=== PATIENT | male | born 1965 | race Caucasian/White ===

== ENCOUNTER 2020-07-17 12:34 | Inpatient (IN) | payer OTHER ==
[2020-07-17 13:25] LABS: #Eosinphils 0.1 thou/uL (0.0-0.7); #Lymphocytes 0.9 thou/uL (1.20-3.40); #Monocytes 0.6 thou/uL (0.11-0.59); #Neutrophils 4.1 thou/uL (1.40-6.50); %Basophils 0.2 % (0.0-1.0); %Eosinophils 2.6 % (0.0-10.0); %Lymphocytes 15.6 % (21.0-51.0); %Monocytes 9.9 % (0.0-10.0); %Neutrophils 71.8 % (42.0-75.0); Hemoglobin 14.7 g/dL (14.0-18.0); Mean Corpuscular HGB CONC 35.1 g/dL (32.0-36.0); Mean Corpuscular Hemoglobin 32.1 pg (27.0-31.0); Mean Corpuscular Volume 91.2 fL (78.0-98.0); Mean Platelet Volume 6.9 fL (7.4-10.4); Platelet Count 183 thou/uL (130-400); RBC Distribution Width 17.3 % (11.5-14.5); Red Blood Cell (RBC) Count 4.57 mill/uL (4.70-6.10); White Blood Cell (WBC) Count 5.7 thou/uL (4.8-10.8)
[2020-07-17] MEDS ORDERED: Boostrix 0.5 ML (Tdap) VIAL ONE (13:25)
[2020-07-17 13:47] LABS: ALT (SGPT) 17 U/L (8-55); AST (SGOT) 21 U/L (5-34); Albumin 3.5 g/dL (3.5-5.0); Alkaline Phosphatase 82 U/L (40-110); Anion Gap 12 mmol/L (10-20); BUN (Urea Nitrogen) 9 mg/dL (8.4-25.7); Bilirubin, Total 0.9 mg/dL (0.2-1.2); Calc. Creatinine Clearance 0 mL/min (70-130); Calcium 8.3 mg/dL (7.8-10.44); Carbon Dioxide 23 mmol/L (22-29); Chloride 107 mmol/L (98-107); Globulin 2.4 g/dL (2.4-3.5); Glucose 94 mg/dL (70-105); Magnesium 1.8 mg/dL (1.6-2.6); Protein, Total 5.9 g/dL (6.0-8.3); Sodium 138 mmol/L (136-145)
[2020-07-17 15:09] LABS: Hemoglobin 13.1 g/dL (14.0-18.0)
[2020-07-17] MEDS ORDERED: Heparin 10,000 UNITS/ 10 ML VIAL ONE (15:59)
[2020-07-17] MEDS ORDERED: Fentanyl 100 MCG/2 ML VIAL ONE ×2 (16:02→18:14)
[2020-07-17] MEDS ORDERED: Ketamine 50 MG/ML (10ML VIAL) ONE (16:02)
[2020-07-17] MEDS ORDERED: Albumin 5% 0 ML ONE (16:02)
[2020-07-17] MEDS ORDERED: Midazolam HCl 2 mg/2 ml Vial ONE (16:02)
[2020-07-17 16:03] LABS: SARS-CoV-2 NAA Rapid Test Not Detected (NotDetected)
[2020-07-17] MEDS ORDERED: Sodium Bicarb 50 MEQ/50 ML Abboject 8.4% SYRINGE ONE (16:22)
[2020-07-17] MEDS ORDERED: Phenylephrine 10 MG/ML VIAL ONE (16:22)
[2020-07-17] MEDS ORDERED: Rocuronium Bromide 10 MG/ML (10ML VIAL) ONE (16:42)
[2020-07-17] MEDS ORDERED: Succinylcholine 200 MG/10 ml SYRINGE FS ONE (16:42)
[2020-07-17] MEDS ORDERED: Dexamethasone 20 MG/5 ML VIAL ONE (16:42)
[2020-07-17] MEDS ORDERED: Glycopyrrolate 0.2 MG/ML 5 ML SYRINGE ONE (16:42)
[2020-07-17] MEDS ORDERED: Ondansetron PF 4 MG/2 ML Vial ONE (16:42)
[2020-07-17] MEDS ORDERED: PROPOFOL 200 MG/20 ML VIAL ONE (16:42)
[2020-07-17] MEDS ORDERED: Piperacillin/Tazobactam 3.375 GM VIAL ONE (17:05)
[2020-07-17] MEDS ORDERED: Lorazepam 2 MG/ML VIAL SLOW IVP PRN (18:02)
[2020-07-17] MEDS ORDERED: Ondansetron ODT 4 MG TAB PO PRN (18:02)
[2020-07-17] MEDS ORDERED: Ondansetron PF 4 MG/2 ML Vial IVP PRN ×2 (18:02→18:16)
[2020-07-17] MEDS ORDERED: hydrALAZINE 20 MG/ML VIAL SLOW IVP PRN (18:02)
[2020-07-17] MEDS ORDERED: Ketorolac Tromethamine 30 MG/ML VIAL IVP PRN (18:06)
[2020-07-17] MEDS ORDERED: Promethazine HCl 25 MG/ML VIAL IM PRN ×3 (18:16→18:20)
[2020-07-17] MEDS ORDERED: diphenhydrAMINE 50 MG/ML VIAL IVP PRN (18:16)
[2020-07-17] MEDS ORDERED: Zolpidem Tartrate 5 MG TAB PO PRN (18:16)
[2020-07-17] MEDS ORDERED: diphenhydrAMINE 25 MG CAP PO PRN (18:16)
[2020-07-17] MEDS ORDERED: diphenhydrAMINE 50 MG/ML VIAL IM PRN (18:16)
[2020-07-17] MEDS ORDERED: fentaNYL Citrate/PF 2,000 MCG in Sodium Chloride 0.9% 60 ML IV PRN (18:16)
[2020-07-17] MEDS ORDERED: Naloxone HCl 0.4 mg/ml Vial IV PRN (18:16)
[2020-07-17] MEDS ORDERED: Ondansetron HCl/PF 4 MG/2 ML Vial IVP PRN ×2 (18:19→18:20)
[2020-07-17] MEDS ORDERED: Promethazine HCl 25 MG/ML VIAL SLOW IVP PRN ×2 (18:19→18:20)
[2020-07-17] MEDS ORDERED: Communication Order-Pharmacy FS SCH (18:30)
[2020-07-17] MEDS ORDERED: hydrALAZINE 20 MG/ML VIAL ONE (18:42)
[2020-07-17] MEDS ORDERED: D5 1/2 NS w/20 mEq KCL 1,000 ML ONE (18:58)
[2020-07-17] MEDS: Lactated Ringer's 1,000 ML IV SCH ×3 (21:33→22:33)
[2020-07-17] MEDS: Famotidine/PF 20 mg/2ml Vial SLOW IVP SCH (21:34)
[2020-07-17] MEDS: Enoxaparin Sodium 40 MG/0.4 ML SYRINGE SC SCH (21:35)
[2020-07-17] MEDS: D5 1/2 NS w/20 mEq KCL 1,000 ML IV SCH (21:35)
[2020-07-18 00:28] VITALS: BMI 28.9
[2020-07-18] MEDS: D5 1/2 NS w/20 mEq KCL 1,000 ML IV SCH ×2 (05:27→14:28)
[2020-07-18 07:02] LABS: Anion Gap 13 mmol/L (10-20); BUN (Urea Nitrogen) 8 mg/dL (8.4-25.7); Calc. Creatinine Clearance 102 mL/min (70-130); Calcium 8.4 mg/dL (7.8-10.44); Carbon Dioxide 20 mmol/L (22-29); Chloride 107 mmol/L (98-107); Glucose 135 mg/dL (70-105); Potassium 4.4 mmol/L (3.5-5.1); Sodium 136 mmol/L (136-145)
[2020-07-18 07:09] LABS: Hemoglobin 15.8 g/dL (14.0-18.0); Mean Corpuscular HGB CONC 34.3 g/dL (32.0-36.0); Mean Corpuscular Volume 93.3 fL (78.0-98.0); Mean Platelet Volume 7.4 fL (7.4-10.4); Platelet Count 231 thou/uL (130-400); RBC Distribution Width 16.7 % (11.5-14.5); Red Blood Cell (RBC) Count 4.92 mill/uL (4.70-6.10)
[2020-07-18 07:28] LABS: #Lymphocytes 1.2 thou/uL (1.20-3.40); #Monocytes 1.6 thou/uL (0.11-0.59); #Neutrophils 15.2 thou/uL (1.40-6.50); %Basophils 0.2 % (0.0-1.0); %Eosinophils 0.2 % (0.0-10.0); %Lymphocytes 6.8 % (21.0-51.0); %Monocytes 8.8 % (0.0-10.0); White Blood Cell (WBC) Count 18.1 thou/uL (4.8-10.8)
[2020-07-18] MEDS: Famotidine/PF 20 mg/2ml Vial SLOW IVP SCH ×2 (10:43→21:08)
[2020-07-18] MEDS: Lactated Ringer's 1,000 ML IV SCH (14:28)
[2020-07-18] MEDS ORDERED: Acetaminophen 500 MG TAB PO PRN (14:34)
[2020-07-18] MEDS ORDERED: traMADol HCl 50 MG TAB PO PRN ×2 (14:34→15:13)
[2020-07-18] MEDS ORDERED: Lactated Ringer's 1,000 ML IV SCH (14:35)
[2020-07-18] MEDS: Enoxaparin Sodium 40 MG/0.4 ML SYRINGE SC SCH (21:05)
[2020-07-19] MEDS: Famotidine/PF 20 mg/2ml Vial SLOW IVP SCH ×2 (08:46→21:11)
[2020-07-19] MEDS: Enoxaparin Sodium 40 MG/0.4 ML SYRINGE SC SCH (21:10)
[2020-07-20] MEDS ORDERED: Ibuprofen 600 MG TAB PO PRN (08:28)
[2020-07-20] MEDS ORDERED: traMADol HCl 50 MG TAB PO PRN (08:28)
[2020-07-20] MEDS ORDERED: Polyethylene Glycol 3350 17 GM Packet PO SCH (09:00)
[2020-07-20 11:27] VITALS: BP 102/66; TEMP 98.2
[2020-07-20] MEDS ORDERED: Haemoph B Posysac Conj-Meng 0.5 ML VIAL IM ONE (15:00)
[2020-07-20] MEDS ORDERED: Mening Vac A,C,Y,W-135 Dip/PF 1 EACH KIT IM ONE (16:00)
== END 2020-07-20 18:15 | disposition home or self-care (01) | DRG 799 ==
LOC: ERS 12:34 → SDC/OP 16:44 → SURG B 18:02
PROVIDERS: ADMIT Specialist; ATTEND Specialist
PROC: 07TP0ZZ Resection of Spleen, Open Approach (ICD-10-PCS; principal; 2020-07-17)
PROC: 30233N1 Transfusion of Nonautologous Red Blood Cells into Peripheral Vein, Percutaneous Approach (ICD-10-PCS; 2020-07-17)
DX: D73.5 Infarction of spleen (principal); K66.1 Hemoperitoneum; R57.8 Other shock; S22.42XA Multiple fractures of ribs, left side, initial encounter for closed fracture; S36.09XA Other injury of spleen, initial encounter; W19.XXXA Unspecified fall, initial encounter; Z20.822 Contact with and (suspected) exposure to COVID-19; Z90.49 Acquired absence of other specified parts of digestive tract; Z85.038 Personal history of other malignant neoplasm of large intestine; Z93.2 Ileostomy status; Z92.21 Personal history of antineoplastic chemotherapy; Z87.891 Personal history of nicotine dependence
CPT/HCPCS: 0240U; 36415; 36430; 70450; 71045; 71275; 72125; 74176; 80048; 80053; 82550; 83735; 84146; 84484; 85025; 85379; 86850; 86900; 86901; 88305; 90471; 90647; 90715; 90732; 93005; 94760; G0009; G0390; J0360; J1100; J1644; J1650; J2250; J2370; J2405; J2543; J2704; J3010; J3480; J3490; P9016; P9045; S0028

== ENCOUNTER 2021-01-07 10:06 | Outpatient (CLI) | payer OTHER | END 2021-01-07 10:07 | disposition home or self-care (01) | LOC: RAD 10:06 | PROVIDERS: ATTEND Specialist | DX: Z48.815 Encounter for surgical aftercare following surgery on the digestive system (principal); Z93.2 Ileostomy status | CPT/HCPCS: 74280 ==

== ENCOUNTER 2021-01-19 11:26 | Outpatient (CLI) | payer OTHER ==
[2021-01-19 13:22] LABS: #Basophils 0.2 10x3/uL (0.0-0.2); #Eosinphils 0.3 10x3/uL (0.0-0.5); #Monocytes 1.2 10x3/uL (0.0-1.1); #Neutrophils 5.3 10x3/uL (1.5-8.4); %Basophils 1.4 % (0.0-2.0); %Lymphocytes 32.1 % (18.0-47.0); %Monocytes 11.8 % (0.0-10.0); Hemoglobin 17.9 g/dL (13.5-17.5); Mean Corpuscular HGB CONC 33.4 g/dL (32.0-36.0); Mean Corpuscular Hemoglobin 30.4 pg (27.0-33.0); Mean Corpuscular Volume 91.2 fl (81.2-95.1); Mean Platelet Volume 10.4 fl (7.4-10.4); Platelet Count 446 10x3/uL (150-450); RBC Distribution Width 14.2 % (11.5-14.5); Red Blood Cell (RBC) Count 5.88 10x6/uL (4.32-5.72); White Blood Cell (WBC) Count 10.4 10x3/uL (3.5-10.5)
[2021-01-19 13:36] LABS: ALT (SGPT) 45 U/L (8-55); AST (SGOT) 42 U/L (5-34); Albumin 4.5 g/dL (3.5-5.0); Alkaline Phosphatase 97 U/L (40-110); Anion Gap 16 mmol/L (10-20); BUN (Urea Nitrogen) 12 mg/dL (8.4-25.7); Bilirubin, Total 0.8 mg/dL (0.2-1.2); Calc. Creatinine Clearance 0 mL/min (70-130); Calcium 10.1 mg/dL (7.8-10.44); Carbon Dioxide 22 mmol/L (22-29); Chloride 106 mmol/L (98-107); Glucose 97 mg/dL (70-105); Potassium 4.8 mmol/L (3.5-5.1); Protein, Total 7.5 g/dL (6.0-8.3); Sodium 139 mmol/L (136-145)
[2021-01-19 16:27] LABS: Hemoglobin A1c 5.1 % (4.0-6.0)
[2021-01-19 21:37] LABS: SARS-CoV-2 PCR by NAA Not Detected (NotDetected)
== END 2021-01-19 11:27 | disposition home or self-care (01) ==
LOC: LABBT 11:26
PROVIDERS: ATTEND Specialist
DX: Z01.818 Encounter for other preprocedural examination (principal); Z93.2 Ileostomy status; Z20.822 Contact with and (suspected) exposure to COVID-19
CPT/HCPCS: 80053; 83036; 85025; 93005; 93010; U0003; U0005

== ENCOUNTER 2021-01-19 11:45 | Inpatient (IN) | payer OTHER ==
[2021-01-20 13:45] VITALS: BMI 28.0
[2021-01-31] MEDS ORDERED: Gabapentin 300 MG CAP ONE (08:17)
[2021-01-31] MEDS ORDERED: Acetaminophen 500 MG TAB ONE (08:17)
[2021-01-31] MEDS ORDERED: Ketorolac Tromethamine 30 MG/ML VIAL ONE (08:17)
[2021-01-31] MEDS ORDERED: Meropenem 2 GM in Sodium Chloride 0.9% 100 ML IVPB SCH (08:30)
[2021-01-31] MEDS ORDERED: Meropenem 2 GM in Admixture Fee 1 EACH IVPB SCH (08:30)
[2021-01-31] MEDS ORDERED: Fentanyl 100 MCG/2 ML VIAL ONE ×2 (09:18→09:35)
[2021-01-31] MEDS ORDERED: Bupivacaine PF 0.5% 30 ML VIAL ONE (09:25)
[2021-01-31] MEDS ORDERED: Lidocaine 1% w/Epinephrine 1:100K 20 ML VIAL ONE (09:25)
[2021-01-31] MEDS ORDERED: Midazolam HCl 2 mg/2 ml Vial ONE (09:35)
[2021-01-31] MEDS ORDERED: Rocuronium Bromide 10 MG/ML (10ML VIAL) ONE (10:38)
[2021-01-31] MEDS ORDERED: Lidocaine 1% PF 5 ML VIAL ONE (10:38)
[2021-01-31] MEDS ORDERED: Ondansetron PF 4 MG/2 ML Vial ONE (10:38)
[2021-01-31] MEDS ORDERED: Bupivacaine HCl 0.5%/Epinephrine 1:200,000/PF 30 ml Vial ONE (10:38)
[2021-01-31] MEDS ORDERED: Glycopyrrolate 0.2 MG/ML 5 ML SYRINGE ONE (10:38)
[2021-01-31] MEDS ORDERED: ePHEDrine 50 MG/ML VIAL ONE (10:38)
[2021-01-31] MEDS ORDERED: PROPOFOL 200 MG/20 ML VIAL ONE (10:38)
[2021-01-31] MEDS ORDERED: Dexamethasone 20 MG/5 ML VIAL ONE (10:38)
[2021-01-31] MEDS ORDERED: hydrALAZINE 20 MG/ML VIAL SLOW IVP PRN (12:39)
[2021-01-31] MEDS ORDERED: Morphine 4 MG/ML VIAL SLOW IVP PRN ×2 (12:39→12:55)
[2021-01-31] MEDS ORDERED: Ondansetron PF 4 MG/2 ML Vial IVP PRN (12:39)
[2021-01-31] MEDS ORDERED: Ondansetron ODT 4 MG TAB PO PRN (12:39)
[2021-01-31] MEDS ORDERED: Ketorolac Tromethamine 30 MG/ML VIAL IVP PRN (12:42)
[2021-01-31] MEDS ORDERED: traMADol HCl 50 MG TAB PO PRN (12:42)
[2021-01-31] MEDS: Acetaminophen 500 MG TAB PO SCH ×2 (15:02→20:47)
[2021-01-31] MEDS: D5 1/2 NS w/20 mEq KCL 1,000 ML IV SCH ×2 (15:03→21:39)
[2021-01-31] MEDS ORDERED: FLU VACC QS2021-22(6MOS UP)/PF 60 MCG/0.5 ML SYRINGE IM ONE (16:15)
[2021-01-31] MEDS ORDERED: Prevnar 13-Val Conj/PF 0.5 ML SYRINGE IM ONE (16:15)
[2021-01-31] MEDS: Famotidine 20 MG TAB PO SCH (20:47)
[2021-01-31] MEDS ORDERED: Enoxaparin Sodium 40 MG/0.4 ML SYRINGE SC SCH (21:00)
[2021-02-01] MEDS: Acetaminophen 500 MG TAB PO SCH ×3 (02:38→15:44)
[2021-02-01] MEDS: D5 1/2 NS w/20 mEq KCL 1,000 ML IV SCH (04:27)
[2021-02-01 06:10] LABS: #Basophils 0.1 thou/uL (0.0-0.2); #Eosinphils 0.1 thou/uL (0.0-0.7); #Lymphocytes 3.2 thou/uL (1.20-3.40); #Neutrophils 10.6 thou/uL (1.40-6.50); %Basophils 0.4 % (0.0-1.0); %Eosinophils 0.6 % (0.0-10.0); %Monocytes 12.6 % (0.0-10.0); %Neutrophils 66.4 % (42.0-75.0); Hemoglobin 14.1 g/dL (14.0-18.0); Mean Corpuscular HGB CONC 33.4 g/dL (32.0-36.0); Mean Corpuscular Hemoglobin 32.3 pg (27.0-31.0); Mean Corpuscular Volume 96.7 fL (78.0-98.0); Mean Platelet Volume 6.8 fL (7.4-10.4); Platelet Count 349 thou/uL (130-400); RBC Distribution Width 13.3 % (11.5-14.5); Red Blood Cell (RBC) Count 4.35 mill/uL (4.70-6.10)
[2021-02-01 06:32] LABS: Anion Gap 11 mmol/L (10-20); BUN (Urea Nitrogen) 13 mg/dL (8.4-25.7); Calc. Creatinine Clearance 118 mL/min (70-130); Calcium 8.8 mg/dL (7.8-10.44); Carbon Dioxide 24 mmol/L (22-29); Chloride 105 mmol/L (98-107); Glucose 98 mg/dL (70-105); Potassium 3.7 mmol/L (3.5-5.1); Sodium 136 mmol/L (136-145)
[2021-02-01] MEDS: Famotidine 20 MG TAB PO SCH (08:48)
[2021-02-01 14:05] LABS: #Basophils 0.1 thou/uL (0.0-0.2); #Eosinphils 0.1 thou/uL (0.0-0.7); #Lymphocytes 3.2 thou/uL (1.20-3.40); #Monocytes 1.8 thou/uL (0.11-0.59); #Neutrophils 12.4 thou/uL (1.40-6.50); %Basophils 0.4 % (0.0-1.0); %Eosinophils 0.7 % (0.0-10.0); %Monocytes 10.4 % (0.0-10.0); %Neutrophils 70.6 % (42.0-75.0); Hemoglobin 13.8 g/dL (14.0-18.0); Mean Corpuscular Hemoglobin 32.6 pg (27.0-31.0); Mean Corpuscular Volume 96.1 fL (78.0-98.0); Mean Platelet Volume 7.2 fL (7.4-10.4); Platelet Count 344 thou/uL (130-400); RBC Distribution Width 13.4 % (11.5-14.5); Red Blood Cell (RBC) Count 4.22 mill/uL (4.70-6.10); White Blood Cell (WBC) Count 17.5 thou/uL (4.8-10.8)
[2021-02-01 17:08] VITALS: BP 147/77; TEMP 98.6
[2021-02-05] MEDS ORDERED: Ibuprofen 600 MG TAB PO PRN (12:42)
== END 2021-02-01 17:00 | disposition home or self-care (01) | DRG 331 ==
LOC: SURG A 01-31 07:55 → SURG B 01-31 14:10
PROVIDERS: ADMIT Specialist; ATTEND Specialist
PROC: 0DW807Z Revision of Autologous Tissue Substitute in Small Intestine, Open Approach (ICD-10-PCS; principal; 2021-01-31)
DX: Z43.2 Encounter for attention to ileostomy (principal); Z20.822 Contact with and (suspected) exposure to COVID-19; E66.9 Obesity, unspecified; F17.210 Nicotine dependence, cigarettes, uncomplicated; Z85.038 Personal history of other malignant neoplasm of large intestine; Z68.28 Body mass index [BMI] 28.0-28.9, adult
CPT/HCPCS: 36415; 80048; 85025; J1100; J1650; J1885; J2250; J2405; J2704; J3010; J3480; J3490; S0020

== ENCOUNTER 2021-01-27 06:47 | Outpatient (CLI) | payer OTHER ==
[2021-01-27 22:04] LABS: SARS-CoV-2 PCR by NAA Not Detected (NotDetected)
== END 2021-01-27 06:48 | disposition home or self-care (01) ==
LOC: LABBT 06:47
PROVIDERS: ATTEND Specialist
DX: Z01.812 Encounter for preprocedural laboratory examination (principal); Z93.2 Ileostomy status; Z20.822 Contact with and (suspected) exposure to COVID-19
CPT/HCPCS: U0003; U0005